=== PATIENT | female | born 1960 | race African-American/Black ===

== ENCOUNTER 2016-12-06 23:37 | Inpatient (IN) | payer MEDICAID ==
[~2016-12-06] VITALS: Ht 162.6 cm; Wt 81.2 kg
[~2016-12-06 23:37] MED LIST: ASPI-1079 PO; BENA10TA PO; CLOP75TA16 PO; KEPP500 PO; SIMV20TA2; SIMV5TAB53; TRAM100T14
[2016-12-07] MEDS ORDERED: SODIUM CHLORIDE 0.9% 1,000 ML IV ONE (00:56)
[2016-12-07] MEDS ORDERED: MORPHINE SULFATE 4 MG/ML CPJ (NOT FOR IM USE) IV STA (00:56)
[2016-12-07] MEDS ORDERED: ONDANSETRON HCL 4MG/2ML VIAL IV STA (00:56)
[2016-12-07] MEDS ORDERED: NITROGLYCERIN OINT 1GM/INCH UDPKT TD ONE (01:00)
[2016-12-07] MEDS ORDERED: ASPIRIN 81MG TABLET PO ONE (01:00)
[2016-12-07 01:29] LABS: BASOPHILS % 0.6 % (0.0-2.0); EOSINOPHILS % 2.1 % (0.0-5.0); HEMOGLOBIN. 13.7 g/dL (12.0-16.0); LYMPHOCYTES % 46.8 % (20.0-50.0); MEAN CORPUSCULAR VOLUME 87.8 fL (81.0-99.0); MEAN PLATELET VOLUME 8.4 fl (7.4-10.4); MONOCYTES % 5.8 % (2.0-8.0); NEUTROPHILS % 44.7 % (40.0-76.0); PLATELET 289 x1000/uL (130-400); RED BLOOD CELL COUNT 4.56 mill/uL (4.2-5.4); RED CELL DISTRIBUTION WIDTH 13.1 % (11.6-14.6)
[2016-12-07] MEDS ORDERED: FENTANYL CITRATE/PF 50MCG/ML 2ML VIAL IV ONE (01:45)
[2016-12-07 02:33] LABS: CLARITY URINE CLEAR (CLEAR); COLOR URINE YELLOW (YELLOW); GLUCOSE URINE 2+ (NEGATIVE); KETONES URINE NEGATIVE (NEGATIVE); LEUKOCYTE ESTERASE URINE NEGATIVE (NEGATIVE); NITRITE URINE NEGATIVE (NEGATIVE); OCCULT BLOOD URINE NEGATIVE (NEGATIVE); PH URINE 5.5 (4.5-8.0); PROTEIN URINE NEGATIVE (NEGATIVE); UROBILINOGEN URINE 0.2 E.U./dL (0.2-1.0)
[2016-12-07 02:44] LABS: *AMPHETAMINES SCREEN URINE NEGATIVE (NEGATIVE); *BARBITURATES SCREEN URINE NEGATIVE (NEGATIVE); *BENZODIAZEPINES SCREEN URINE NEGATIVE (NEGATIVE); *COCAINE SCREEN URINE NEGATIVE (NEGATIVE); CANNABINOID URINE SCREEN NEGATIVE (NEGATIVE); METHADONE URINE SCREEN NEGATIVE (NEGATIVE); OPIATES URINE SCREEN NEGATIVE (NEGATIVE); PHENCYCLIDINE URINE SCREEN NEGATIVE (NEGATIVE)
[2016-12-07 03:45] LABS: CARBON DIOXIDE 28 mEq/L (21-32); CHLORIDE 106 mEq/L (98-107); ETHANOL BLOOD < 10 mg/dL; TROPONIN I 0.34 ng/mL (0.00-0.04)
[2016-12-07 05:50] VITALS: BP 105/62
[2016-12-07 08:09] VITALS: BP_SYST 137; BP_SYST 93; BP_DIAS 50; BP_DIAS 91
[2016-12-07 11:38] LABS: T4 FREE 1.34 ng/dL (0.76-1.46)
[2016-12-07] MEDS ORDERED: CLONIDINE 0.1MG TABLET PO PRN (11:45)
[2016-12-07] MEDS ORDERED: ACETAMINOPHEN 325MG TABLET PO PRN (11:45)
[2016-12-07] MEDS ORDERED: DIPHENHYDRAMINE 50MG/ML VIAL IV PRN (11:45)
[2016-12-07] MEDS ORDERED: ONDANSETRON HCL 4MG/2ML VIAL IV PRN (11:45)
[2016-12-07] MEDS ORDERED: IPRATROPIUM/ALBUTEROL 0.5-3(2.5)MG/3ML NEB INH PRN (11:45)
[2016-12-07 13:22] VITALS: BP 126/58
[2016-12-07] MEDS ORDERED: ASPIRIN 81MG TABLET PO SCH (13:45)
[2016-12-07] MEDS: HYDROCODONE/ACETAMINOPHEN 5/325MG TABLET PO PRN (14:14)
[2016-12-07 15:16] LABS: CREATINE KINASE MB FRACTION 1.9 ng/mL (0.5-3.6); TROPONIN I 0.31 ng/mL (0.00-0.04)
[2016-12-07] MEDS: BENAZEPRIL 10MG TABLET PO SCH (15:48)
[2016-12-07] MEDS: CLOPIDOGREL 75MG TABLET PO SCH (15:48)
[2016-12-07] MEDS: LEVETIRACETAM 500MG TABLET PO SCH ×2 (15:48→21:09)
[2016-12-07 16:00] VITALS: BP 121/58
[2016-12-07] MEDS ORDERED: IOHEXOL-350 100 ML BOTTLE ONE (16:57)
[2016-12-07] MEDS ORDERED: SODIUM CHLORIDE 0.9% 10ML VIAL ONE (16:57)
[2016-12-07] MEDS: ENOXAPARIN 40MG/0.4ML SYR SUBCUT SCH (17:15)
[2016-12-07 20:00] VITALS: BP 114/41
[2016-12-07] MEDS ORDERED: ATORVASTATIN CALCIUM 20MG TABLET PO SCH (21:00)
[2016-12-08] VITALS (7 sets, daily range): BP systolic 91–109; BP diastolic 45–56
[2016-12-08 00:34] LABS: CREATINE KINASE MB FRACTION 1.4 ng/mL (0.5-3.6); TROPONIN I 0.28 ng/mL (0.00-0.04)
[2016-12-08 07:48] LABS: BASOPHILS % 0.5 % (0.0-2.0); EOSINOPHILS % 2.8 % (0.0-5.0); HEMATOCRIT. 37.4 % (36.0-48.0); HEMOGLOBIN. 12.6 g/dL (12.0-16.0); LYMPHOCYTES % 38.4 % (20.0-50.0); MEAN CORPUSCULAR HEMOGLOBIN 29.8 pg (28.0-32.0); MEAN CORPUSCULAR VOLUME 88.5 fL (81.0-99.0); MEAN PLATELET VOLUME 8.5 fl (7.4-10.4); MONOCYTES % 6.3 % (2.0-8.0); PLATELET 237 x1000/uL (130-400); RED BLOOD CELL COUNT 4.22 mill/uL (4.2-5.4); RED CELL DISTRIBUTION WIDTH 13.1 % (11.6-14.6)
[2016-12-08 08:59] LABS: CARBON DIOXIDE 25 mEq/L (21-32); CHLORIDE 103 mEq/L (98-107); CREATINE KINASE 96 IU/L (26-192); CREATINE KINASE MB FRACTION 1.6 ng/mL (0.5-3.6); HDL CHOLESTEROL 41 mg/dL (40-59); LDL CHOLESTEROL 115 mg/dL (5-100); TROPONIN I 0.28 ng/mL (0.00-0.04)
[2016-12-08] MEDS ORDERED: REGADENOSON 0.4 MG/5 ML IV SCH (09:00)
[2016-12-08] MEDS ORDERED: ASPIRIN 81MG TABLET PO SCH (09:00)
[2016-12-08] MEDS: BENAZEPRIL 10MG TABLET PO SCH (09:00)
[2016-12-08] MEDS: CLOPIDOGREL 75MG TABLET PO SCH (09:30)
[2016-12-08] MEDS: LEVETIRACETAM 500MG TABLET PO SCH (09:30)
[2016-12-08] MEDS: HYDROCODONE/ACETAMINOPHEN 5/325MG TABLET PO PRN (09:39)
[2016-12-08] MEDS ORDERED: REGADENOSON 0.4 MG/5 ML IV ONE (12:29)
[2016-12-08] MEDS: ENOXAPARIN 40MG/0.4ML SYR SUBCUT SCH (16:30)
[2016-12-08] MEDS ORDERED: BUTALBITAL/ACETAMINOPHEN/CAFFEINE 50/325/40MG TABLET PO SCH (17:14)
[2016-12-08] MEDS ORDERED: BUTA1CAP44 PO (17:16)
== END 2016-12-08 17:30 | disposition home or self-care (01) | DRG 282 ==
LOC: ER 12-07 01:11 → 7WST 12-07 02:45 → ENRESERV 12-07 03:11
PROVIDERS: ADMIT Internal Medicine; ATTEND Internal Medicine
DX: K85.90 Acute pancreatitis without necrosis or infection, unspecified (principal); I24.9 Acute ischemic heart disease, unspecified; E11.65 Type 2 diabetes mellitus with hyperglycemia; E78.00 Pure hypercholesterolemia, unspecified; E78.5 Hyperlipidemia, unspecified; F17.200 Nicotine dependence, unspecified, uncomplicated; I10 Essential (primary) hypertension; J45.909 Unspecified asthma, uncomplicated; K86.1 Other chronic pancreatitis; Z79.899 Other long term (current) drug therapy; Z86.73 Personal history of transient ischemic attack (TIA), and cerebral infarction without residual deficits; E44.1 Mild protein-calorie malnutrition
CPT/HCPCS: 36415; 71010; 71275; 74176; 78452; 80053; 80061; 80305; 81001; 82550; 82553; 82962; 83036; 83690; 83880; 84439; 84443; 84484; 85025; 85379; 85610; 87040; 87086; 93005; 93306; 93970; 96361; 96374; 96375; 99285; A4216; A9500; C1893; G0482; J1650; J2270; J2405; J2785; J3010; J7030; Q9967

== ENCOUNTER 2018-06-09 13:58 | Inpatient (IN) | payer MEDICAID ==
[~2018-06-09] VITALS: Ht 165.1 cm; Wt 83.9 kg
[~2018-06-09 13:58] MED LIST changes: +BUTA1CAP44 PO; -SIMV5TAB53; -TRAM100T14; +TRAM100T34
[2018-06-09] MEDS ORDERED: SODIUM CHLORIDE 0.9% 1,000 ML IV ONE (14:46)
[2018-06-09] MEDS ORDERED: ONDANSETRON HCL 4MG/2ML INJ IV STA (14:46)
[2018-06-09] MEDS ORDERED: KETOROLAC 15MG/ML VIAL IV ONE (15:30)
[2018-06-09 15:46] LABS: BASOPHILS % 0.6 % (0.0-2.0); EOSINOPHILS % 1.1 % (0.0-5.0); HEMATOCRIT. 44.3 % (36.0-48.0); HEMOGLOBIN. 14.9 g/dL (12.0-16.0); LYMPHOCYTES % 30.6 % (20.0-50.0); MEAN CORPUSCULAR VOLUME 89.3 fL (81.0-99.0); MEAN PLATELET VOLUME 8.2 fl (7.4-10.4); MONOCYTES % 6.5 % (2.0-8.0); NEUTROPHILS % 61.2 % (40.0-76.0); PLATELET 257 x1000/uL (130-400); RED BLOOD CELL COUNT 4.95 mill/uL (4.2-5.4); RED CELL DISTRIBUTION WIDTH 13.2 % (11.6-14.6)
[2018-06-09 15:49] LABS: CHLORIDE 101 mEq/L (98-107)
[2018-06-09 15:53] LABS: ETHANOL BLOOD < 10 mg/dL
[2018-06-09 15:58] LABS: CREATINE KINASE 60 IU/L (26-192)
[2018-06-09 16:22] LABS: CLARITY URINE CLEAR (CLEAR); COLOR URINE YELLOW (YELLOW); KETONES URINE NEGATIVE (NEGATIVE); LEUKOCYTE ESTERASE URINE NEGATIVE (NEGATIVE); NITRITE URINE NEGATIVE (NEGATIVE); OCCULT BLOOD URINE NEGATIVE (NEGATIVE); PROTEIN URINE NEGATIVE (NEGATIVE); SPECIFIC GRAVITY URINE 1.036 (1.005-1.030); UROBILINOGEN URINE 0.2 E.U./dL (0.2-1.0)
[2018-06-09 16:38] LABS: *AMPHETAMINES SCREEN URINE NEGATIVE (NEGATIVE); *BARBITURATES SCREEN URINE NEGATIVE (NEGATIVE); *BENZODIAZEPINES SCREEN URINE NEGATIVE (NEGATIVE); *COCAINE SCREEN URINE NEGATIVE (NEGATIVE)
[2018-06-09 16:39] LABS: CANNABINOID URINE SCREEN PRESUMTIVE POSITIVE (NEGATIVE); METHADONE URINE SCREEN NEGATIVE (NEGATIVE); OPIATES URINE SCREEN NEGATIVE (NEGATIVE); PHENCYCLIDINE URINE SCREEN NEGATIVE (NEGATIVE)
[2018-06-09] MEDS ORDERED: ASPIRIN 325MG TABLET PO ONE (21:30)
[2018-06-10] VITALS (8 sets, daily range): BP systolic 111–176; BP diastolic 47–74
[2018-06-10] MEDS ORDERED: IPRATROPIUM/ALBUTEROL 0.5-3(2.5)MG/3ML NEB INH PRN (00:45)
[2018-06-10] MEDS ORDERED: DOCUSATE SODIUM 100MG CAPSULE PO PRN (00:45)
[2018-06-10] MEDS ORDERED: CLONIDINE 0.1MG TABLET PO PRN (00:45)
[2018-06-10] MEDS ORDERED: ONDANSETRON HCL 4MG/2ML INJ IV PRN (00:45)
[2018-06-10] MEDS ORDERED: ACETAMINOPHEN 325MG TABLET PO PRN (00:45)
[2018-06-10] MEDS: HYDROCODONE/ACETAMINOPHEN 5/325MG TABLET PO PRN ×2 (04:11→10:25)
[2018-06-10 07:26] LABS: CHLORIDE 104 mEq/L (98-107)
[2018-06-10 07:36] LABS: CREATINE KINASE 46 IU/L (26-192)
[2018-06-10 07:38] LABS: CREATINE KINASE MB FRACTION 1.2 ng/mL (0.5-3.6)
[2018-06-10] MEDS ORDERED: DEXTROSE 50% WATER 50ML SYRINGE IV PRN (09:45)
[2018-06-10] MEDS: BLOOD SUGAR DIAGNOSTIC STRIP TEST SCH ×4 (10:21→21:07)
[2018-06-10] MEDS: ENOXAPARIN 40MG/0.4ML SYR SUBCUT SCH (10:23)
[2018-06-10] MEDS: ASPIRIN 81MG EC TABLET PO SCH (10:23)
[2018-06-10] MEDS: INSULIN LISPRO 100 UNITS/ML SUBCUT SCH ×4 (10:27→21:21)
[2018-06-10] MEDS ORDERED: BLOOD SUGAR DIAGNOSTIC STRIP TEST SCH (12:20)
[2018-06-10] MEDS ORDERED: INSULIN LISPRO 100 UNITS/ML SUBCUT SCH (12:50)
[2018-06-10] MEDS ORDERED: MECLIZINE 25MG TABLET PO PRN (14:15)
[2018-06-10 15:40] LABS: CREATINE KINASE MB FRACTION 1.2 ng/mL (0.5-3.6)
[2018-06-10] MEDS: MORPHINE SULFATE 4 MG/ML CPJ (NOT FOR IM USE) IV PRN (17:44)
[2018-06-10] MEDS: AMLODIPINE 5MG TABLET PO SCH (21:15)
[2018-06-10] MEDS: ATORVASTATIN CALCIUM 20MG TABLET PO SCH (21:15)
[2018-06-10] MEDS: INSULIN GLARGINE UD 100 UNITS/ML SYR SUBCUT SCH (22:30)
[2018-06-11] VITALS (9 sets, daily range): BP systolic 108–137; BP diastolic 52–80
[2018-06-11 06:33] LABS: BASOPHILS % 0.4 % (0.0-2.0); CHLORIDE 103 mEq/L (98-107); EOSINOPHILS % 2.1 % (0.0-5.0); HEMATOCRIT. 40.6 % (36.0-48.0); HEMOGLOBIN. 13.7 g/dL (12.0-16.0); LYMPHOCYTES % 37.6 % (20.0-50.0); MEAN CORPUSCULAR HEMOGLOBIN 30.3 pg (28.0-32.0); MEAN CORPUSCULAR VOLUME 89.4 fL (81.0-99.0); MEAN PLATELET VOLUME 8.5 fl (7.4-10.4); MONOCYTES % 6.5 % (2.0-8.0); NEUTROPHILS % 53.4 % (40.0-76.0); PLATELET 228 x1000/uL (130-400); RED BLOOD CELL COUNT 4.54 mill/uL (4.2-5.4); RED CELL DISTRIBUTION WIDTH 13.1 % (11.6-14.6)
[2018-06-11] MEDS: BLOOD SUGAR DIAGNOSTIC STRIP TEST SCH ×4 (07:20→21:24)
[2018-06-11] MEDS: ASPIRIN 81MG EC TABLET PO SCH (08:14)
[2018-06-11] MEDS: AMLODIPINE 5MG TABLET PO SCH ×2 (08:14→21:23)
[2018-06-11] MEDS: INSULIN LISPRO 100 UNITS/ML SUBCUT SCH ×4 (08:36→21:30)
[2018-06-11] MEDS: ENOXAPARIN 40MG/0.4ML SYR SUBCUT SCH (09:29)
[2018-06-11] MEDS: MORPHINE SULFATE 4 MG/ML CPJ (NOT FOR IM USE) IV PRN (10:19)
[2018-06-11] MEDS: INSULIN GLARGINE UD 100 UNITS/ML SYR SUBCUT SCH ×2 (10:26→21:30)
[2018-06-11] MEDS: FLUTICASONE PROPIONATE 50MCG/SPRAY BOTTLE BOTHNSTRLS SCH (21:16)
[2018-06-11] MEDS: ATORVASTATIN CALCIUM 20MG TABLET PO SCH (21:16)
[2018-06-11] MEDS: MAGNESIUM/ALUMINUM HYDROXIDE/SIMETHICONE 30ML UDC PO PRN (21:24)
[2018-06-12] VITALS (9 sets, daily range): BP systolic 99–135; BP diastolic 51–85
[2018-06-12] MEDS: MORPHINE SULFATE 4 MG/ML CPJ (NOT FOR IM USE) IV PRN (05:59)
[2018-06-12] MEDS: BLOOD SUGAR DIAGNOSTIC STRIP TEST SCH ×4 (06:01→21:22)
[2018-06-12 06:40] LABS: BASOPHILS % 0.4 % (0.0-2.0); EOSINOPHILS % 1.5 % (0.0-5.0); HEMATOCRIT. 42.5 % (36.0-48.0); HEMOGLOBIN. 14.7 g/dL (12.0-16.0); LYMPHOCYTES % 33.9 % (20.0-50.0); MEAN CORPUSCULAR HEMOGLOBIN 30.6 pg (28.0-32.0); MEAN CORPUSCULAR VOLUME 88.8 fL (81.0-99.0); MEAN PLATELET VOLUME 8.5 fl (7.4-10.4); MONOCYTES % 7.4 % (2.0-8.0); NEUTROPHILS % 56.8 % (40.0-76.0); PLATELET 229 x1000/uL (130-400); RED BLOOD CELL COUNT 4.79 mill/uL (4.2-5.4); RED CELL DISTRIBUTION WIDTH 13.1 % (11.6-14.6)
[2018-06-12] MEDS: ENOXAPARIN 40MG/0.4ML SYR SUBCUT SCH (08:34)
[2018-06-12] MEDS: FLUTICASONE PROPIONATE 50MCG/SPRAY BOTTLE BOTHNSTRLS SCH ×2 (08:35→21:21)
[2018-06-12] MEDS: ASPIRIN 81MG EC TABLET PO SCH (08:35)
[2018-06-12] MEDS: AMLODIPINE 5MG TABLET PO SCH ×2 (08:35→21:21)
[2018-06-12] MEDS: INSULIN LISPRO 100 UNITS/ML SUBCUT SCH ×4 (08:41→21:20)
[2018-06-12 09:09] LABS: CHLORIDE 102 mEq/L (98-107)
[2018-06-12 09:26] LABS: LDL CHOLESTEROL 167 mg/dL (5-100)
[2018-06-12 09:28] LABS: HDL CHOLESTEROL 43 mg/dL (40-59)
[2018-06-12] MEDS: INSULIN GLARGINE UD 100 UNITS/ML SYR SUBCUT SCH ×2 (10:44→21:21)
[2018-06-12] MEDS ORDERED: GUAIFENESIN 200MG/10ML SUGAR FREE UDC PO PRN (14:45)
[2018-06-12] MEDS ORDERED: REGADENOSON 0.4 MG/5 ML IV NR (16:15)
[2018-06-12] MEDS: ATORVASTATIN CALCIUM 20MG TABLET PO SCH (21:21)
[2018-06-13] VITALS (8 sets, daily range): BP systolic 101–122; BP diastolic 47–79
[2018-06-13] MEDS: INSULIN LISPRO 100 UNITS/ML SUBCUT SCH ×4 (06:47→22:07)
[2018-06-13] MEDS: BLOOD SUGAR DIAGNOSTIC STRIP TEST SCH ×4 (06:47→21:00)
[2018-06-13] MEDS: AMLODIPINE 5MG TABLET PO SCH ×2 (09:00→21:00)
[2018-06-13] MEDS: MORPHINE SULFATE 4 MG/ML CPJ (NOT FOR IM USE) IV PRN ×2 (09:09→22:05)
[2018-06-13] MEDS: ASPIRIN 81MG EC TABLET PO SCH (09:09)
[2018-06-13] MEDS: ENOXAPARIN 40MG/0.4ML SYR SUBCUT SCH (09:09)
[2018-06-13] MEDS: FLUTICASONE PROPIONATE 50MCG/SPRAY BOTTLE BOTHNSTRLS SCH ×2 (09:10→22:05)
[2018-06-13] MEDS: INSULIN GLARGINE UD 100 UNITS/ML SYR SUBCUT SCH ×2 (10:33→22:08)
[2018-06-13] MEDS ORDERED: REGADENOSON 0.4 MG/5 ML IV ONE (13:36)
[2018-06-13] MEDS: ATORVASTATIN CALCIUM 20MG TABLET PO SCH (22:04)
[2018-06-13] MEDS: MAGNESIUM/ALUMINUM HYDROXIDE/SIMETHICONE 30ML UDC PO PRN (22:04)
[2018-06-14] VITALS (7 sets, daily range): BP systolic 97–120; BP diastolic 40–72
[2018-06-14] MEDS: MORPHINE SULFATE 4 MG/ML CPJ (NOT FOR IM USE) IV PRN (06:15)
[2018-06-14 06:40] LABS: BASOPHILS % 0.6 % (0.0-2.0); EOSINOPHILS % 2.4 % (0.0-5.0); HEMATOCRIT. 41.2 % (36.0-48.0); LYMPHOCYTES % 41.1 % (20.0-50.0); MEAN CORPUSCULAR HEMOGLOBIN 30.6 pg (28.0-32.0); MEAN CORPUSCULAR VOLUME 89.9 fL (81.0-99.0); MEAN PLATELET VOLUME 8.7 fl (7.4-10.4); MONOCYTES % 8.5 % (2.0-8.0); NEUTROPHILS % 47.4 % (40.0-76.0); PLATELET 249 x1000/uL (130-400); RED BLOOD CELL COUNT 4.58 mill/uL (4.2-5.4); RED CELL DISTRIBUTION WIDTH 12.9 % (11.6-14.6)
[2018-06-14 06:53] LABS: CHLORIDE 105 mEq/L (98-107)
[2018-06-14] MEDS: BLOOD SUGAR DIAGNOSTIC STRIP TEST SCH ×2 (07:34→12:20)
[2018-06-14] MEDS: INSULIN LISPRO 100 UNITS/ML SUBCUT SCH ×2 (07:35→12:57)
[2018-06-14] MEDS: AMLODIPINE 5MG TABLET PO SCH (09:00)
[2018-06-14] MEDS: ENOXAPARIN 40MG/0.4ML SYR SUBCUT SCH (09:24)
[2018-06-14] MEDS: ASPIRIN 81MG EC TABLET PO SCH (09:24)
[2018-06-14] MEDS: FLUTICASONE PROPIONATE 50MCG/SPRAY BOTTLE BOTHNSTRLS SCH (09:24)
[2018-06-14] MEDS: INSULIN GLARGINE UD 100 UNITS/ML SYR SUBCUT SCH (10:56)
== END 2018-06-14 17:45 | disposition home health service (06) | DRG 48 ==
LOC: ER 13:58 → 6WST 21:31 → EDBEDREQ 21:34 → EDBEDREQTM 21:34 → ENRESERV 06-10 08:00
PROVIDERS: ADMIT Internal Medicine; ATTEND Internal Medicine
DX: G90.8 Other disorders of autonomic nervous system (principal); E11.65 Type 2 diabetes mellitus with hyperglycemia; I69.398 Other sequelae of cerebral infarction; I10 Essential (primary) hypertension; E78.5 Hyperlipidemia, unspecified; G40.909 Epilepsy, unspecified, not intractable, without status epilepticus; F12.90 Cannabis use, unspecified, uncomplicated; F17.210 Nicotine dependence, cigarettes, uncomplicated; I69.351 Hemiplegia and hemiparesis following cerebral infarction affecting right dominant side; W18.30XA Fall on same level, unspecified, initial encounter; J45.909 Unspecified asthma, uncomplicated; H54.7 Unspecified visual loss; Z71.6 Tobacco abuse counseling; Y93.89 Activity, other specified; Y92.89 Other specified places as the place of occurrence of the external cause; Y99.8 Other external cause status
CPT/HCPCS: 36415; 70551; 71045; 78452; 80048; 80061; 80305; 80320; 82550; 82553; 82962; 83036; 83605; 83880; 84443; 84484; 92523; 92610; 93005; 93017; 93306; 93880; 93970; 97116; 97162; 99285; A9500; C1893; J1650; J1815; J1885; J2270; J2405; J2785; J7030; J8597; G0480

== ENCOUNTER 2020-06-15 21:44 | Emergency (ER) | payer MEDICAID ==
[~2020-06-15] VITALS: Ht 162.6 cm; Wt 68.0 kg
[~2020-06-15 21:44] MED LIST changes: +CLOP-31 PO; -CLOP75TA16 PO
[2020-06-16] MEDS ORDERED: ASPIRIN 325MG EC TABLET PO ONE (01:00)
[2020-06-16 01:12] LABS: BASOPHILS % 0.6 % (0.0-2.0); HEMATOCRIT. 41.7 % (36.0-48.0); HEMOGLOBIN. 13.8 g/dL (12.0-16.0); LYMPHOCYTES % 44.5 % (20.0-50.0); MEAN CORPUSCULAR HEMOGLOBIN 28.9 pg (28.0-32.0); MEAN CORPUSCULAR VOLUME 87.6 fL (81.0-99.0); MEAN PLATELET VOLUME 8.6 fl (7.4-10.4); MONOCYTES % 7.2 % (2.0-8.0); NEUTROPHILS % 45.7 % (40.0-76.0); PLATELET 250 x1000/uL (130-400); RED BLOOD CELL COUNT 4.77 mill/uL (4.2-5.4); RED CELL DISTRIBUTION WIDTH 13.2 % (11.6-14.6)
[2020-06-16 01:17] LABS: CHLORIDE 102 mEq/L (98-107)
[2020-06-16 01:28] LABS: INR 0.9; PROTHROMBIN TIME 10.2 sec (9.6-11.0)
[2020-06-16] MEDS ORDERED: MORPHINE SULFATE 4 MG/ML CPJ (NOT FOR IM USE) IV ONE (02:15)
[2020-06-16] MEDS ORDERED: SODIUM CHLORIDE 0.9% 1,000 ML IV ONE (03:30)
[2020-06-16 04:18] VITALS: BP 119/68
== END 2020-06-16 04:41 | disposition short-term general hospital (02) ==
LOC: ER 21:44
DX: I63.9 Cerebral infarction, unspecified (principal); R47.1 Dysarthria and anarthria; M79.672 Pain in left foot; M79.671 Pain in right foot; E11.65 Type 2 diabetes mellitus with hyperglycemia; G62.9 Polyneuropathy, unspecified; I69.351 Hemiplegia and hemiparesis following cerebral infarction affecting right dominant side; G40.909 Epilepsy, unspecified, not intractable, without status epilepticus; R29.6 Repeated falls
CPT/HCPCS: 36415; 70450; 80053; 85025; 85610; 96361; 96374; 99284; J2270

== ENCOUNTER 2022-05-09 12:59 | Inpatient (IN) | payer MEDICAID ==
[~2022-05-09] VITALS: Ht 165.1 cm; Wt 73.0 kg
[~2022-05-09 12:59] MED LIST changes: +SIMV-343; -SIMV20TA2
[2022-05-09] MEDS ORDERED: MORPHINE SULFATE 4 MG/ML CPJ (NOT FOR IM USE) IV STA (13:37)
[2022-05-09] MEDS ORDERED: ONDANSETRON HCL 4MG/2ML INJ IV STA (13:37)
[2022-05-09] MEDS ORDERED: SODIUM CHLORIDE 0.9% 1,000 ML IV ONE (13:45)
[2022-05-09 14:19] LABS: BASOPHILS % 0.6 % (0.0-2.0); EOSINOPHILS % 1.8 % (0.0-5.0); HEMATOCRIT. 42.7 % (36.0-48.0); HEMOGLOBIN. 14.4 g/dL (12.0-16.0); LYMPHOCYTES % 35.5 % (20.0-50.0); MEAN CORPUSCULAR HEMOGLOBIN 29.9 pg (28.0-32.0); MEAN CORPUSCULAR VOLUME 88.5 fL (81.0-99.0); MEAN PLATELET VOLUME 8.2 fl (7.4-10.4); MONOCYTES % 4.7 % (2.0-8.0); NEUTROPHILS % 57.4 % (40.0-76.0); PLATELET 331 x1000/uL (130-400); RED BLOOD CELL COUNT 4.83 mill/uL (4.2-5.4)
[2022-05-09 14:24] LABS: CHLORIDE 102 mEq/L (98-107)
[2022-05-09 14:29] LABS: PARTIAL THROMBOPLASTIN TIME 24.3 sec (23.4-31.0); PROTHROMBIN TIME 10.5 sec (9.6-11.0)
[2022-05-09] MEDS ORDERED: ASPIRIN 325MG EC TABLET PO ONE (17:45)
[2022-05-09 21:00] VITALS: BP 139/68
[2022-05-09 21:11] VITALS: BP 144/67
[2022-05-09] MEDS ORDERED: ENOXAPARIN 80MG/0.8ML SYR SUBCUT NR (22:24)
[2022-05-09] MEDS ORDERED: ACETAMINOPHEN 325MG TABLET PO PRN (22:30)
[2022-05-09] MEDS ORDERED: CLONIDINE 0.1MG TABLET PO PRN (22:30)
[2022-05-09] MEDS ORDERED: ONDANSETRON HCL 4MG/2ML INJ IV PRN (22:30)
[2022-05-09] MEDS ORDERED: ATOR40TA70 PO (22:41)
[2022-05-09] MEDS ORDERED: TOPI100T37 PO (22:41)
[2022-05-09] MEDS ORDERED: CLOP75TA33 PO (22:41)
[2022-05-09] MEDS ORDERED: INSU100I24 SUBCUT (22:41)
[2022-05-09] MEDS ORDERED: METF-416 PO (22:41)
[2022-05-09] MEDS ORDERED: HYDR-4001 PO (22:41)
[2022-05-09] MEDS ORDERED: GABA-532 PO (22:41)
[2022-05-09] MEDS ORDERED: CARV3.1242 PO (22:41)
[2022-05-09] MEDS ORDERED: LISI2.5T47 PO (22:41)
[2022-05-09] MEDS ORDERED: INSU100I13 SUBCUT (22:41)
[2022-05-09] MEDS ORDERED: DIGO125T2 PO (22:41)
[2022-05-09] MEDS: HYDROCODONE/ACETAMINOPHEN 10/325MG TABLET PO PRN (23:58)
[2022-05-09] MEDS: SODIUM CHLORIDE 0.9% 1,000 ML IV SCH (23:59)
[2022-05-10] VITALS (11 sets, daily range): BP systolic 115–145; BP diastolic 42–70
[2022-05-10 06:10] LABS: BASOPHILS % 0.3 % (0.0-2.0); EOSINOPHILS % 2.6 % (0.0-5.0); HEMATOCRIT. 39.2 % (36.0-48.0); HEMOGLOBIN. 13.2 g/dL (12.0-16.0); LYMPHOCYTES % 53.9 % (20.0-50.0); MEAN CORPUSCULAR HEMOGLOBIN 29.8 pg (28.0-32.0); MEAN CORPUSCULAR VOLUME 88.4 fL (81.0-99.0); MEAN PLATELET VOLUME 8.2 fl (7.4-10.4); NEUTROPHILS % 37.2 % (40.0-76.0); PLATELET 260 x1000/uL (130-400); RED BLOOD CELL COUNT 4.43 mill/uL (4.2-5.4); RED CELL DISTRIBUTION WIDTH 13.7 % (11.6-14.6)
[2022-05-10 06:26] LABS: CHLORIDE 108 mEq/L (98-107)
[2022-05-10 06:36] LABS: CREATINE KINASE 56 IU/L (26-192); CREATINE KINASE MB FRACTION 1.7 ng/mL (0.5-3.6); HDL CHOLESTEROL 37 mg/dL (40-59); LDL CHOLESTEROL 82 mg/dL (5-100)
[2022-05-10] MEDS: CLOPIDOGREL 75MG TABLET PO SCH (10:36)
[2022-05-10] MEDS: ASPIRIN 81MG TABLET PO SCH (10:36)
[2022-05-10] MEDS: METOPROLOL TARTRATE 25MG TABLET PO SCH ×2 (10:38→21:00)
[2022-05-10] MEDS ORDERED: REGADENOSON 0.4 MG/5 ML IV NR (11:00)
[2022-05-10] MEDS: SODIUM CHLORIDE 0.9% 1,000 ML IV SCH (12:00)
[2022-05-10] MEDS: HYDROCODONE/ACETAMINOPHEN 10/325MG TABLET PO PRN (16:59)
[2022-05-10 17:33] LABS: CREATINE KINASE MB FRACTION 1.7 ng/mL (0.5-3.6)
[2022-05-10] MEDS ORDERED: ATORVASTATIN CALCIUM 40MG TABLET PO SCH (21:00)
[2022-05-11] VITALS: BP 121/55
[2022-05-11] MEDS: SODIUM CHLORIDE 0.9% 1,000 ML IV SCH (01:10)
[2022-05-11 02:00] VITALS: BP 145/74
[2022-05-11 04:00] VITALS: BP 136/64
[2022-05-11 06:00] VITALS: BP 135/53
[2022-05-11 08:00] VITALS: BP 147/55
[2022-05-11] MEDS: CLOPIDOGREL 75MG TABLET PO SCH (08:13)
[2022-05-11] MEDS: ASPIRIN 81MG TABLET PO SCH (08:14)
[2022-05-11] MEDS: METOPROLOL TARTRATE 25MG TABLET PO SCH (08:14)
[2022-05-11 11:27] VITALS: BP 147/55
== END 2022-05-11 12:45 | disposition home or self-care (01) | DRG 48 ==
LOC: ER 12:59 → 5EST 19:16
PROVIDERS: ADMIT Internal Medicine; ATTEND Internal Medicine
DX: G90.8 Other disorders of autonomic nervous system (principal); I21.A1 Myocardial infarction type 2; I50.42 Chronic combined systolic (congestive) and diastolic (congestive) heart failure; I69.359 Hemiplegia and hemiparesis following cerebral infarction affecting unspecified side; E11.65 Type 2 diabetes mellitus with hyperglycemia; R47.81 Slurred speech; I10 Essential (primary) hypertension; G83.14 Monoplegia of lower limb affecting left nondominant side; R47.1 Dysarthria and anarthria; R29.6 Repeated falls; E78.00 Pure hypercholesterolemia, unspecified; I08.0 Rheumatic disorders of both mitral and aortic valves; I25.10 Atherosclerotic heart disease of native coronary artery without angina pectoris; J45.909 Unspecified asthma, uncomplicated; E78.5 Hyperlipidemia, unspecified; Z79.02 Long term (current) use of antithrombotics/antiplatelets; Z79.82 Long term (current) use of aspirin; Z88.8 Allergy status to other drugs, medicaments and biological substances; Z79.899 Other long term (current) drug therapy; I69.331 Monoplegia of upper limb following cerebral infarction affecting right dominant side
CPT/HCPCS: 36415; 70496; 70498; 70551; 71045; 73560; 78452; 80048; 80053; 80061; 82010; 82550; 82553; 82962; 83036; 83880; 84484; 85025; 86850; 86900; 93005; 93017; 93306; 93970; 99291; A9500; J1650; J2270; J2405; J2785; J7030

== ENCOUNTER 2023-02-21 12:51 | Inpatient (IN) | payer BC, MEDICAID ==
[~2023-02-21] VITALS: Ht 152.4 cm; Wt 60.3 kg
[~2023-02-21 12:51] MED LIST changes: +ATOR40TA70 PO; -BENA10TA PO; -BUTA1CAP44 PO; +CARV3.1242 PO; -CLOP-31 PO; +CLOP75TA33 PO; +DIGO125T2 PO; +GABA-532 PO; +HYDR-4001 PO; +INSU100I13 SUBCUT; +INSU100I24 SUBCUT; +LISI2.5T47 PO; +METF-416 PO; -SIMV-343; +TOPI100T37 PO; -TRAM100T34
[2023-02-21] MEDS ORDERED: MORPHINE SULFATE 10 MG/ML CPJ IM ONE (19:45)
[2023-02-22] MEDS ORDERED: ACETAMINOPHEN 325MG TABLET PO ONE (02:00)
[2023-02-22 02:32] LABS: BASOPHILS % 0.5 % (0.0-2.0); EOSINOPHILS % 2.6 % (0.0-5.0); HEMATOCRIT. 41.8 % (36.0-48.0); LYMPHOCYTES % 33.7 % (20.0-50.0); MEAN CORPUSCULAR HEMOGLOBIN 29.8 pg (28.0-32.0); MEAN CORPUSCULAR HGB CONC 33.4 g/dL (31.0-37.0); MEAN CORPUSCULAR VOLUME 89.2 fL (81.0-99.0); MEAN PLATELET VOLUME 8.3 fl (7.4-10.4); MONOCYTES % 6.4 % (2.0-8.0); NEUTROPHILS % 56.8 % (40.0-76.0); PLATELET 249 x1000/uL (130-400); RED BLOOD CELL COUNT 4.69 mill/uL (4.2-5.4); RED CELL DISTRIBUTION WIDTH 13.8 % (11.6-14.6); WHITE BLOOD COUNT 10.3 x1000/uL (4.5-11.0)
[2023-02-22 02:40] LABS: ALANINE AMINOTRANSFERASE 18 IU/L (10-49); ALBUMIN 4.4 g/dL (3.2-4.8); ASPARTATE AMINOTRANSFERASE 12 IU/L (<34); BILIRUBIN TOTAL 0.5 mg/dL (0.1-1.0); CARBON DIOXIDE 27 mEq/L (21-32); CHLORIDE 101 mEq/L (98-107); CREATININE 0.9 mg/dL (0.6-1.0); GLUCOSE 352 mg/dL (70-105); POTASSIUM 3.9 mEq/L (3.5-5.1); PROTEIN TOTAL 7.9 g/dL (6.0-8.3); SODIUM 135 mEq/L (136-145); UREA NITROGEN BLOOD 19 mg/dL (9-23)
[2023-02-22] MEDS: LIDOCAINE 5% PATCH TOP SCH ×2 (03:08→09:00)
[2023-02-22] MEDS ORDERED: MORPHINE SULFATE 10 MG/ML CPJ IM NR (03:15)
[2023-02-22 03:18] LABS: ETHANOL BLOOD < 10 mg/dL (<10); PARTIAL THROMBOPLASTIN TIME 24.8 sec (23.4-31.0); PROTHROMBIN TIME 10.3 sec (9.6-11.0)
[2023-02-22 03:19] LABS: TROPONIN I HIGH SENSITIVITY 384 ng/L (3.0-34)
[2023-02-22] MEDS ORDERED: ENOXAPARIN 60MG/0.6ML SYR SUBCUT NR (03:30)
[2023-02-22] MEDS ORDERED: ASPIRIN 325MG EC TABLET PO NR (03:30)
[2023-02-22] MEDS ORDERED: INSULIN REGULAR (HUMULIN R) 300UNITS/3ML VIAL SUBCUT NR (05:15)
[2023-02-22 10:17] LABS: CLARITY URINE CLEAR (CLEAR); COLOR URINE YELLOW (YELLOW); GLUCOSE URINE 3+ (NEGATIVE); KETONES URINE TRACE (NEGATIVE); LEUKOCYTE ESTERASE URINE NEGATIVE (NEGATIVE); NITRITE URINE NEGATIVE (NEGATIVE); OCCULT BLOOD URINE NEGATIVE (NEGATIVE); PROTEIN URINE 1+ (NEGATIVE); SPECIFIC GRAVITY URINE 1.045 (1.005-1.030); UROBILINOGEN URINE 0.2 E.U./dL (0.2-1.0)
[2023-02-22 11:14] LABS: SQUAMOUS EPITHELIAL CELL URINE 2+ /lpf (RARE/1+)
[2023-02-22 11:23] LABS: BACTERIA URINE 3+
[2023-02-22 12:00] VITALS: BP_SYST 120; BP_SYST 140; BP_DIAS 62; BP_DIAS 63; PULSE 62; PULSE 65; RESP 20; TEMP 98
[2023-02-22 12:09] LABS: *AMPHETAMINES SCREEN URINE NEGATIVE (NEGATIVE); *BARBITURATES SCREEN URINE NEGATIVE (NEGATIVE); *BENZODIAZEPINES SCREEN URINE NEGATIVE (NEGATIVE); *COCAINE SCREEN URINE PRESUMPTIVE POSITIVE (NEGATIVE); CANNABINOID URINE SCREEN PRESUMPTIVE POSITIVE (NEGATIVE); ECSTASY MDMA SCREEN URINE NEGATIVE (NEGATIVE); METHADONE URINE SCREEN Neg (NEGATIVE); OPIATES URINE SCREEN PRESUMPTIVE POSITIVE (NEGATIVE); PHENCYCLIDINE URINE SCREEN NEGATIVE (NEGATIVE)
[2023-02-22] MEDS ORDERED: DEXTROSE 50% WATER 50ML SYRINGE IV PRN (12:15)
[2023-02-22] MEDS ORDERED: ACETAMINOPHEN 325MG TABLET PO PRN (12:15)
[2023-02-22] MEDS ORDERED: ONDANSETRON HCL 4MG/2ML INJ IV PRN (12:15)
[2023-02-22] MEDS: ASPIRIN 81MG TABLET PO SCH (13:00)
[2023-02-22] MEDS: LOSARTAN 50 MG TABLET PO SCH (13:00)
[2023-02-22 16:00] VITALS: BP 116/63; PULSE 62; RESP 17; TEMP 98.2
[2023-02-22] MEDS ORDERED: ENOXAPARIN 40MG/0.4ML SYR SUBCUT SCH (16:00)
[2023-02-22] MEDS: BLOOD SUGAR DIAGNOSTIC STRIP TEST SCH ×2 (16:59→21:33)
[2023-02-22] MEDS ORDERED: NALOXONE HCL 0.4MG/ML VIAL IV PRN (17:30)
[2023-02-22] MEDS: INSULIN LISPRO 100 UNITS/ML SUBCUT SCH ×2 (17:58→21:42)
[2023-02-22] MEDS: TRAMADOL 50MG TABLET PO PRN ×2 (18:03→23:05)
[2023-02-22 20:00] VITALS: BP 137/65; PULSE 68; RESP 20; TEMP 98.2
[2023-02-23] VITALS: BP 140/59; PULSE 62; RESP 18; TEMP 97.5
[2023-02-23 04:00] VITALS: BP 106/53; PULSE 60; RESP 18; TEMP 97.5
[2023-02-23 05:51] LABS: BASOPHILS % 0.5 % (0.0-2.0); HEMATOCRIT. 41.3 % (36.0-48.0); HEMOGLOBIN. 13.7 g/dL (12.0-16.0); MEAN CORPUSCULAR HEMOGLOBIN 29.8 pg (28.0-32.0); MEAN CORPUSCULAR HGB CONC 33.1 g/dL (31.0-37.0); MEAN CORPUSCULAR VOLUME 89.9 fL (81.0-99.0); MEAN PLATELET VOLUME 8.6 fl (7.4-10.4); MONOCYTES % 6.5 % (2.0-8.0); PLATELET 231 x1000/uL (130-400); RED BLOOD CELL COUNT 4.59 mill/uL (4.2-5.4); RED CELL DISTRIBUTION WIDTH 13.2 % (11.6-14.6); WHITE BLOOD COUNT 6.7 x1000/uL (4.5-11.0)
[2023-02-23] MEDS: BLOOD SUGAR DIAGNOSTIC STRIP TEST SCH ×4 (06:01→17:34)
[2023-02-23 06:04] LABS: CALCIUM 9.3 mg/dL (8.7-10.4); CARBON DIOXIDE 27 mEq/L (21-32); CHLORIDE 102 mEq/L (98-107); CREATININE 0.8 mg/dL (0.6-1.0); GLUCOSE 166 mg/dL (70-105); POTASSIUM 3.8 mEq/L (3.5-5.1); SODIUM 137 mEq/L (136-145); UREA NITROGEN BLOOD 11 mg/dL (9-23)
[2023-02-23 06:08] LABS: DIGOXIN < 0.1 ng/mL (0.8-2.0)
[2023-02-23 06:10] LABS: TROPONIN I HIGH SENSITIVITY 357 ng/L (3.0-34)
[2023-02-23] MEDS: INSULIN LISPRO 100 UNITS/ML SUBCUT SCH ×4 (06:52→18:01)
[2023-02-23 08:00] VITALS: BP 120/49; PULSE 66; RESP 20; TEMP 96.8
[2023-02-23] MEDS: ASPIRIN 81MG TABLET PO SCH (09:12)
[2023-02-23] MEDS: CLOPIDOGREL 75MG TABLET PO SCH (09:12)
[2023-02-23] MEDS: LOSARTAN 50 MG TABLET PO SCH (09:12)
[2023-02-23] MEDS: TRAMADOL 50MG TABLET PO PRN (09:16)
[2023-02-23] MEDS ORDERED: SODIUM CHLORIDE 0.45% 1,000 ML IV ONE (09:30)
[2023-02-23 12:00] VITALS: BP 136/82; PULSE 62; RESP 18; TEMP 96.9
[2023-02-23] MEDS ORDERED: LIDOCAINE HCL 1% 20ML VIAL (Pyxis) INJ ONE (12:36)
[2023-02-23] MEDS ORDERED: HEPARIN 1000 UNITS/ML 10ML ONE (12:37)
[2023-02-23] MEDS ORDERED: IODIXANOL 320MG/ML 100 ML BOTTLE IV ONE (12:37)
[2023-02-23] MEDS ORDERED: VERAPAMIL HCL 2.5 MG/1 ML 2ML VIAL IV ONE (12:37)
[2023-02-23] MEDS ORDERED: FENTANYL CITRATE/PF 50MCG/ML 2ML VIAL ONE (12:39)
[2023-02-23] MEDS ORDERED: MIDAZOLAM HCL 2 MG/2 ML VIAL ONE (12:39)
[2023-02-23] MEDS ORDERED: ASPIRIN/SOD BICARB/CITRIC ACID 324MG TAB EFF ONE (12:48)
[2023-02-23] MEDS ORDERED: ATROPINE SULFATE 1MG/10ML SYR IV PRN (14:30)
[2023-02-23] MEDS ORDERED: ONDANSETRON HCL 4MG/2ML INJ IV PRN (14:30)
[2023-02-23] MEDS ORDERED: ACETAMINOPHEN 325MG TABLET PO PRN (14:30)
[2023-02-23] MEDS ORDERED: REGADENOSON 0.4 MG/5 ML IV NR (15:00)
[2023-02-23 20:00] VITALS: BP 120/94; PULSE 63; RESP 20; TEMP 98.1
[2023-02-23] MEDS ORDERED: DEXTROSE 50% WATER 50ML SYRINGE IV PRN (20:30)
[2023-02-23] MEDS ORDERED: BLOOD SUGAR DIAGNOSTIC STRIP TEST ONE (21:00)
[2023-02-23] MEDS ORDERED: INSULIN LISPRO 100 UNITS/ML SUBCUT ONE (21:00)
[2023-02-23] MEDS: MORPHINE SULFATE 2 MG/ML CPJ (NOT FOR IM USE) IV PRN (22:17)
[2023-02-23] MEDS ORDERED: IOHEXOL-350 100 ML BOTTLE ONE (23:23)
[2023-02-24] VITALS (7 sets, daily range): BP systolic 105–138; BP diastolic 50–100; PULSE 58–82; RESP 18–20; TEMP 97.7–98.8
[2023-02-24] MEDS: BLOOD SUGAR DIAGNOSTIC STRIP TEST SCH ×4 (05:55→20:38)
[2023-02-24] MEDS: MORPHINE SULFATE 2 MG/ML CPJ (NOT FOR IM USE) IV PRN ×2 (06:01→06:27)
[2023-02-24] MEDS: INSULIN LISPRO 100 UNITS/ML SUBCUT SCH ×4 (06:21→20:38)
[2023-02-24 06:37] LABS: BASOPHILS % 0.6 % (0.0-2.0); EOSINOPHILS % 3.8 % (0.0-5.0); HEMATOCRIT. 40.7 % (36.0-48.0); HEMOGLOBIN. 13.6 g/dL (12.0-16.0); LYMPHOCYTES % 46.1 % (20.0-50.0); MEAN CORPUSCULAR HEMOGLOBIN 29.9 pg (28.0-32.0); MEAN CORPUSCULAR HGB CONC 33.4 g/dL (31.0-37.0); MEAN CORPUSCULAR VOLUME 89.6 fL (81.0-99.0); MEAN PLATELET VOLUME 8.3 fl (7.4-10.4); MONOCYTES % 6.3 % (2.0-8.0); NEUTROPHILS % 43.2 % (40.0-76.0); PLATELET 248 x1000/uL (130-400); RED BLOOD CELL COUNT 4.54 mill/uL (4.2-5.4); RED CELL DISTRIBUTION WIDTH 13.4 % (11.6-14.6); WHITE BLOOD COUNT 7.5 x1000/uL (4.5-11.0)
[2023-02-24 07:06] LABS: CALCIUM 9.3 mg/dL (8.7-10.4); CARBON DIOXIDE 26 mEq/L (21-32); CHLORIDE 103 mEq/L (98-107); CREATININE 0.8 mg/dL (0.6-1.0); GLUCOSE 165 mg/dL (70-105); POTASSIUM 4.1 mEq/L (3.5-5.1); SODIUM 136 mEq/L (136-145); UREA NITROGEN BLOOD 13 mg/dL (9-23)
[2023-02-24] MEDS: LOSARTAN 50 MG TABLET PO SCH (09:00)
[2023-02-24] MEDS: ASPIRIN 81MG TABLET PO SCH (09:00)
[2023-02-24] MEDS: CLOPIDOGREL 75MG TABLET PO SCH (09:00)
[2023-02-24] MEDS ORDERED: METOPROLOL TARTRATE 25MG TABLET PO NR (10:45)
[2023-02-24] MEDS ORDERED: METOPROLOL TARTRATE 5MG/5ML VIAL IV NR (10:45)
[2023-02-24] MEDS ORDERED: NITROGLYCERIN SPRAY/4.9GM CAN TL NR (14:00)
[2023-02-24] MEDS ORDERED: SODIUM CHLORIDE 0.45% 1,000 ML IV ONE (15:45)
[2023-02-24] MEDS: TRAMADOL 50MG TABLET PO PRN (16:33)
[2023-02-24] MEDS: HYDROCODONE/ACETAMINOPHEN 5/325MG TABLET PO PRN (20:37)
[2023-02-25] VITALS: BP 136/50; PULSE 70; RESP 19; TEMP 97.5
[2023-02-25 04:00] VITALS: BP 132/52; PULSE 72; RESP 20; TEMP 97.2
[2023-02-25] MEDS: BLOOD SUGAR DIAGNOSTIC STRIP TEST SCH ×2 (06:23→11:45)
[2023-02-25] MEDS: INSULIN LISPRO 100 UNITS/ML SUBCUT SCH ×2 (06:28→12:06)
[2023-02-25 07:15] LABS: BASOPHILS % 0.4 % (0.0-2.0); EOSINOPHILS % 4.7 % (0.0-5.0); HEMATOCRIT. 39.8 % (36.0-48.0); HEMOGLOBIN. 13.4 g/dL (12.0-16.0); LYMPHOCYTES % 46.8 % (20.0-50.0); MEAN CORPUSCULAR HEMOGLOBIN 29.7 pg (28.0-32.0); MEAN CORPUSCULAR HGB CONC 33.6 g/dL (31.0-37.0); MEAN CORPUSCULAR VOLUME 88.6 fL (81.0-99.0); MEAN PLATELET VOLUME 8.7 fl (7.4-10.4); MONOCYTES % 7.3 % (2.0-8.0); NEUTROPHILS % 40.8 % (40.0-76.0); PLATELET 224 x1000/uL (130-400); RED CELL DISTRIBUTION WIDTH 13.2 % (11.6-14.6); WHITE BLOOD COUNT 6.3 x1000/uL (4.5-11.0)
[2023-02-25 07:49] LABS: CALCIUM 8.9 mg/dL (8.7-10.4); CARBON DIOXIDE 24 mEq/L (21-32); CHLORIDE 103 mEq/L (98-107); CHOLESTEROL 196 mg/dL (<200); CREATININE 0.8 mg/dL (0.6-1.0); GLUCOSE 252 mg/dL (70-105); HDL CHOLESTEROL 45 mg/dL (>65); LDL CHOLESTEROL 150 mg/dL (5-100); POTASSIUM 4.3 mEq/L (3.5-5.1); SODIUM 136 mEq/L (136-145); TRIGLYCERIDE 124 mg/dL (0-150); UREA NITROGEN BLOOD 12 mg/dL (9-23)
[2023-02-25 08:00] VITALS: BP 147/56; PULSE 60; RESP 18; TEMP 98
[2023-02-25] MEDS: HYDROCODONE/ACETAMINOPHEN 5/325MG TABLET PO PRN (10:51)
[2023-02-25 12:00] VITALS: BP 135/62; PULSE 60; RESP 18; TEMP 97.1
[2023-02-25 13:48] VITALS: BP 135/62; PULSE 60; TEMP 97.1; O2SAT 99
[2023-02-25] MEDS ORDERED: ATORVASTATIN CALCIUM 40MG TABLET PO SCH (21:00)
== END 2023-02-25 15:00 | disposition home health service (06) | DRG 198 ==
LOC: ER 14:36 → 5WST 02-22 04:30
PROVIDERS: ADMIT Internal Medicine; ATTEND Internal Medicine
PROC: 4A00X4Z Measurement of Central Nervous Electrical Activity, External Approach (ICD-10-PCS; principal; 2023-02-23)
PROC: 04JYXZZ Inspection of Lower Artery, External Approach (ICD-10-PCS; 2023-02-23)
DX: I25.10 Atherosclerotic heart disease of native coronary artery without angina pectoris (principal); E11.65 Type 2 diabetes mellitus with hyperglycemia; I10 Essential (primary) hypertension; J45.909 Unspecified asthma, uncomplicated; G89.29 Other chronic pain; I35.1 Nonrheumatic aortic (valve) insufficiency; F14.90 Cocaine use, unspecified, uncomplicated; F12.90 Cannabis use, unspecified, uncomplicated; E78.5 Hyperlipidemia, unspecified; I25.2 Old myocardial infarction; Z86.73 Personal history of transient ischemic attack (TIA), and cerebral infarction without residual deficits; Z79.02 Long term (current) use of antithrombotics/antiplatelets; Z95.5 Presence of coronary angioplasty implant and graft; Z79.82 Long term (current) use of aspirin; Z79.899 Other long term (current) drug therapy
CPT/HCPCS: 36415; 70551; 71045; 72141; 73030; 75571; 75635; 80048; 80053; 80061; 80162; 80305; 80320; 81003; 82962; 83036; 83880; 84484; 85025; 93005; 93306; 93970; 95816; 97162; 97166; 99285; J1644; J1650; J1815; J2250; J2270; J3010; J3490; Q9967; G0480